=== PATIENT | female | born 1980 | race Caucasian/White ===

== ENCOUNTER → 2018-08-19 | Outpatient (CLI) | payer OTHER ==
[~2018-08-19] MED LIST: BISA10S PR; HYDR25SUP PR; MESA400ER PO; MULVITMINE PO; PROGESTERONE CREAM; RXOXYACE PO
== END ==
LOC: LAB EV 15:19 → LAB SHORT 15:19
DX: N39.0 Urinary tract infection, site not specified (principal)
CPT/HCPCS: 87077; 87086; 87186

== ENCOUNTER 2019-01-07 10:38 | Day surgery (SDC) | payer OTHER ==
[~2019-01-07] VITALS: Ht 167.6 cm; Wt 83.0 kg
[~2019-01-07 10:38] MED LIST changes: +ACIDOPHILUS100 M1 PO; +ALBU90OI6 INH; +BENADRYL25 MG PO; +CHOL10002 PO; +CRINONE1.125 GM; +FOLI400 PO; +Miralax17 GM PO; +Naltrexone HCl50 MG PO; +ONE DAILY COMP1 EACH PO; +VITAMIN B-121000 MCG PO; +Vitamin A10000 UNIT PO; +[UNRECOGNIZED DRUG - OTHER] IM
--- NOTE | 2019-01-07 12:38 | NUR ---
01/07/19 1238 Lilia Butler DEFICIT STATES 945, BUT ACCORDING TO APPROXIMATE IN'S AND OUT'S THE DEFICIT IS 250ML
--- NOTE | 2019-01-07 12:47 | NUR ---
01/07/19 1247 Dagmar Hutton PATIENT TO PACU ON [place]. REPORT RECEIVED FROM DR SANTIAGO AND ELIZABETH BARRERA. PATIENT ON ROOM AIR. WAKES UP WHEN SPOKEN TO BUT GOES RIGHT BACK TO SLEEP. PERIPAD IN PLACE. PATIENT STABLE BUT SLEEPING
== END 2019-01-07 13:45 | disposition home or self-care (01) ==
LOC: ORSCSDS 10:38
PROVIDERS: Obstetrics & Gynecology
PROC: 0U5B8ZZ Destruction of Endometrium, Via Natural or Artificial Opening Endoscopic (ICD-10-PCS; principal; 2019-01-07 12:00)
DX: N92.1 Excessive and frequent menstruation with irregular cycle (principal); D50.9 Iron deficiency anemia, unspecified; K21.9 Gastro-esophageal reflux disease without esophagitis; Z79.899 Other long term (current) drug therapy
CPT/HCPCS: 88305; J0330; J0690; J1100; J1885; J2250; J2370; J2405; J3010; J7120

== ENCOUNTER 2019-02-01 20:55 | Observation (INO) | payer OTHER ==
[~2019-02-01] VITALS: Ht 167.6 cm; Wt 83.2 kg
[2019-02-01] MEDS ORDERED: NITR100CA PO (21:56)
[2019-02-01] MEDS ORDERED: CIPR500 PO (21:56)
[2019-02-01 23:07] LABS: BASOPHILS ABSOLUTE AUTO 0.03 K/mm3 (0.00-0.23); BASOPHILS PERCENT AUTO 1 % (0-2); EOSINOPHILS ABSOLUTE AUTO 0.16 K/mm3 (0.00-0.68); EOSINOPHILS PERCENT AUTO 3 % (0-6); Hematocrit 39.3 % (33.0-51.0); Hemoglobin 12.3 g/dL (11.5-16.0); IMMATURE GRAN ABSOLUTE AUTO 0.03 K/mm3 (0.00-0.10); IMMATURE GRAN PERCENT AUTO 1 % (0-1); LYMPHOCYTES ABSOLUTE AUTO 1.05 K/mm3 (0.84-5.20); LYMPHOCYTES PERCENT AUTO 18 % (21-46); MONOCYTES ABSOLUTE AUTO 0.59 K/mm3 (0.16-1.47); MONOCYTES PERCENT AUTO 10 % (4-13); Mean Corpuscular HGB 24.2 pg (26.0-34.0); Mean Corpuscular HGB Conc 31.3 g/dL (31.5-36.5); Mean Corpuscular Volume 77 fL (80-100); NEUTROPHILS ABSOLUTE AUTO 4.06 K/mm3 (1.96-9.15); NEUTROPHILS PERCENT AUTO 69 % (41-73); Platelet Count 308 K/mm3 (150-400); RDW Coefficient Variation 24.1 % (11.7-14.2); RDW Standard Deviation 63.7 fL (35.1-46.3); Red Blood Cell Count 5.08 M/mm3 (3.80-5.20); White Blood Cell Count 5.92 K/mm3 (4.00-11.30)
[2019-02-01 23:12] LABS: Source, Urine Clean Catch
[2019-02-01 23:14] LABS: Bilirubin, Urine Neg (Neg); Blood, Urine 1+ (Neg); Glucose Qualitative, Urine Neg (Neg); Ketones, Urine 4+ (Neg); Leukocyte Esterase, Urine 1+ (Neg); Nitrite, Urine Neg (Neg); Protein, Urine 2+ (Neg); Urobilinogen, Urine NORM (Normal)
[2019-02-01 23:15] LABS: Appearance, Urine Clear (Clear); Color, Urine Yellow (P-Yellow)
[2019-02-01 23:23] LABS: Bacteria Mod /hpf; Red Blood Cells, Urine 0-2 /hpf (0-2); Squamous Epithelial Cells Few /hpf (Few)
[2019-02-01 23:26] LABS: Alanine Aminotransfer (ALT/SGP 137 U/L (12-78); Albumin, Blood 3.8 g/dL (3.4-5.0); Albumin/Globulin Ratio 0.8 (0.8-1.8); Alk Phos 245 U/L (50-136); Anion Gap 9 mmol/L (6-16); Aspartate Aminotrans (AST/SGOT 63 U/L (12-37); Bilirubin, Total 1.9 mg/dL (0.1-1.0); Blood Urea Nitrogen 6 mg/dL (8-24); Bun/Creatinine Ratio 11.6 (12.0-20.0); CO2, Blood 25 mmol/L (21-32); Calcium, Blood 9.4 mg/dL (8.5-10.1); Chloride, Blood 103 mmol/L (98-108); Creatinine, Blood 0.52 mg/dL (0.40-1.00); Globulin, Blood 4.6 g/dL (2.2-4.0); Glomerular Filtration Rate >60 (60-); Glucose, Blood 95 mg/dL (70-99); Potassium, Blood 3.3 mmol/L (3.5-5.5); Sodium, Blood 137 mmol/L (136-145); Total Protein, Blood 8.4 g/dL (6.4-8.2)
--- NOTE | 2019-02-02 01:30 | NUR ---
RECEIVED HAND OFF FOM ER NURSE USING SBAR. TRANSPORTED TO ROOM VIA WHEELCHAIR. TRANSFERED SELF TO BED, TOLERATED WELL. AAO X3, WAITE, FOLLOWS ALL COMMANDS. ORIENTED TO ROOM, CALL SYSTEM, AND POC, VOICES UNDERSTANDING. ADMISSION ASSESSMENT IN PROGRESS. DENIES FURTHER NEEDS AT THIS TIME. SAFETY MEASURES IN PLACE. WILL CONTINUE TO MONITOR.
--- NOTE | 2019-02-02 06:36 | NUR ---
LYING IN SEMI FOWLERS WITH EYES CLOSED. NO CHANGES SINCE ADMISSION. DENIES FURTHER NEEDS AT THIS TIME. SAFETY MEASURES IN PLACE. WILL GIVE HAND OFF TO ONCOMING SHIFT USING SBAR.
--- NOTE | 2019-02-02 14:10 | NUR ---
REPORT FROM LEAH Johnson RN. ASSUMED PT CARE.
--- NOTE | 2019-02-02 15:15 | NUR ---
UPDATED PT ON PLAN AFTER SPEAKING WITH DAY SURG STAFF. PT TO GO TO DAY SURGERY, WILL BE SEEN BY DR KINCAID THERE AND CONSENTED. PT HAS SOME QUESTIONS THAT WILL BE ADDRESSED BY SURGICAL STAFF.
--- NOTE | 2019-02-02 15:22 | NUR ---
PT TO DAY SURGERY VIA STRETCHER. INT.
--- NOTE | 2019-02-02 15:35 | NUR ---
History, Chart, Medications and Allergies reviewed before start of procedure.Lungs clear T/O to Auscultation. Patient confirms NPO status and agrees with scheduled surgery.
--- NOTE | 2019-02-02 17:51 | NUR ---
NO RELIEF FROM PAIN MED. ABLE TO REST 5MIN BETWEEN DOSES. ABD. SOFT, STRI STRIPS DRY, NO MORS NAUSEA.
--- NOTE | 2019-02-02 18:11 | NUR ---
REPORT FROM PACU.
--- NOTE | 2019-02-02 18:17 | NUR ---
PT ARRIVES TO ROOM FROM PACU. PT DROWSY BUT ORIENTED. C/O PAIN 02/25 TO ABD. FAMILY AT BEDSIDE.
--- NOTE | 2019-02-02 18:27 | NUR ---
PT MEDICATED WITH 0.5MG DILAUDID IV. IVF STARTED. 4 LAP SITES TO ABD. CLEAN AND DRY. PT C/O PAIN, DENIES NAUSEA.
--- NOTE | 2019-02-02 18:59 | NUR ---
BEDSIDE REPORT WITH TIMO ROSALES, ICE WATER AND ICE CHIPS PROVIDED.
--- NOTE | 2019-02-03 06:28 | NUR ---
LYING IN SEMI FOWLERS WITH EYES CLOSED. MEDICATED FOR PAIN X3 THIS SHIFT. PAIN LEVEL AND AMOUNT OF MEDS USED TO CONTROL HAVE IMPROVED. NO FURTHER CHANGES SINCE START OF SHIFT. SAFETY MEASURES IN PLACE. WILL GIVE HAND OFF TO ONCOMING SHIFT USING SBAR.
--- NOTE | 2019-02-03 07:00 | NUR ---
REPORT FROM TIMO JOHNSON. ASSUMED PT CARE.
--- NOTE | 2019-02-03 07:15 | NUR ---
PT APPEARS TO BE RESTING.
--- NOTE | 2019-02-03 08:12 | NUR ---
BREAKFAST PROVIDED. PT SELENA CLEARS WELL. WILL ADVANCE TO FULL FOR LUNCH. ASSESSMENT CHARTED. PT SELENA PO, SELENA MEDS AND ACTIVITY.
--- NOTE | 2019-02-03 08:56 | NUR ---
PT MEDICATED BY OTHER STAFF FOR THIS RN. 1 PAIN PILL PROVIDED PER EMAR.
--- NOTE | 2019-02-03 09:58 | NUR ---
PT MEDICATED WITH COLACE PER EMAR. PT UP WALKING HALLS. STATES PAIN IMPROVED. AWAITING PROVIDER EVAL FOR [facility].
--- NOTE | 2019-02-03 10:39 | NUR ---
02/03/19 1039 Alex Olmos SPECIMEN ORDERED BY CHARGE NURSE THE DAY FOLLOWING SURGERY. PRE-OP DIAGNOSIS PER DR KINCAID.
--- NOTE | 2019-02-03 11:30 | NUR ---
PT SITTING IN BED. NADN. PT FAMILY AT BEDSIDE. AWAITING DR KINCAID.
--- NOTE | 2019-02-03 12:27 | NUR ---
PT MEDICATED WITH 1 NORCO FOR PAIN. PT EATING LUNCH. AWAITING DR KINCAID.
--- NOTE | 2019-02-03 12:33 | NUR ---
DR KINCAID TO ROOM FOR EVAL AND D/C.
[2019-02-03] MEDS ORDERED: Norco 5-325 Ta1 EACH PO (13:07)
--- NOTE | 2019-02-03 13:30 | NUR ---
PT RESTING IN POSITION OF COMFORT. AWAITING FAMILY TO ARRIVE FOR DC.
--- NOTE | 2019-02-03 13:45 | NUR ---
PT FAMILY RETURNED. DC REVIEWED. PT VERBALIZED UNDERSTANDING. ESCORTED TO LOBBY VIA WC.
== END 2019-02-03 13:25 | disposition home or self-care (01) ==
LOC: ER 20:55 → SURS 20:56 → ER 20:56 → SURS 20:57
PROVIDERS: Emergency Medicine; ADMIT Surgery
PROC: BF13YZZ Fluoroscopy of Gallbladder and Bile Ducts using Other Contrast (ICD-10-PCS; 2019-02-02)
PROC: 0FT44ZZ Resection of Gallbladder, Percutaneous Endoscopic Approach (ICD-10-PCS; principal; 2019-02-02 14:30)
DX: K80.12 Calculus of gallbladder with acute and chronic cholecystitis without obstruction (principal); Z79.899 Other long term (current) drug therapy; Z91.018 Allergy to other foods; Z88.1 Allergy status to other antibiotic agents; Z88.2 Allergy status to sulfonamides; Z88.6 Allergy status to analgesic agent; Z91.011 Allergy to milk products
CPT/HCPCS: 36415; 74300; 76705; 80053; 81001; 81025; 83690; 85025; 87086; 88304; 96361; 96365; 96375; 99285-25; A9270-GY; C1729; G0378; J0690; J0696; J1100; J1170; J2060; J2250; J2405; J2704; J2710; J2765; J3010; J7030; J7120